=== PATIENT | female | born 1975 | race Caucasian/White ===

== ENCOUNTER 2018-02-02 01:20 | Emergency (ER) | payer SELFPAY ==
[~2018-02-02] VITALS: Ht 154.9 cm; Wt 52.6 kg
[2018-02-02 02:11] VITALS: BP 109/78
== END 2018-02-02 02:11 | disposition home or self-care (01) ==
LOC: ED 01:20
DX: S01.81XA Laceration without foreign body of other part of head, initial encounter (principal); W18.39XA Other fall on same level, initial encounter; Y93.89 Activity, other specified; Y92.89 Other specified places as the place of occurrence of the external cause; Y99.8 Other external cause status
CPT/HCPCS: 90715; J2001